=== PATIENT | female | born 1935 | race Caucasian/White ===

== ENCOUNTER 2017-09-09 00:52 | Emergency (ER) | payer MEDICARE, OTHER ==
[~2017-09-09] VITALS: Ht 162.6 cm; Wt 76.2 kg
[2017-09-09] MEDS ORDERED: POTA10T PO (01:24)
[2017-09-09] MEDS ORDERED: ATEN100 PO (01:25)
[2017-09-09] MEDS ORDERED: BAYER CHEWABLE81 MG PO (01:25)
[2017-09-09] MEDS ORDERED: ATOR20 PO (01:25)
[2017-09-09] MEDS ORDERED: HYDCHL25 PO (01:25)
[2017-09-09] MEDS ORDERED: HYDCOR2.5C PR (01:26)
[2017-09-09] MEDS ORDERED: CLOB.05TO (01:26)
== END 2017-09-09 01:40 | disposition home or self-care (01) ==
LOC: ER 00:52
DX: K62.5 Hemorrhage of anus and rectum (principal); Z79.899 Other long term (current) drug therapy; Z79.82 Long term (current) use of aspirin; I10 Essential (primary) hypertension; E78.00 Pure hypercholesterolemia, unspecified
CPT/HCPCS: 99283